=== PATIENT | male | born 1945 | race Caucasian/White ===

== ENCOUNTER → 2019-04-05 | Emergency (ER) | payer MEDICARE, BC ==
[~2019-04-05] VITALS: Ht 177.8 cm; Wt 74.8 kg
[~2019-04-05] MED LIST: HYDROCODONE/APAP 5/325MG 1 EACH TABLET ONE; HYDROCODONE/APAP 5/325MG 1 EACH TABLET PO ONE; TDAP [DIPH/PERTUSSIS/TET] 0.5 ML VIAL IM ONE
--- NOTE | 2019-04-05 14:10 | NUR ---
LACERATION TO 4TH AND 5TH DIGITS,R HAND, SUSTAINED WHILE WORKING WITH A SAW AT HOME. PATIENT IN NO DISTRESS, AT BEDSIDE. RIGHT HAND COVERED WITH A TOWEL AT THIS TIME, WAITING FOR MD FISHER.
--- NOTE | 2019-04-05 15:38 | NUR ---
LACERATION REPAIRED FOR RIGHT HAND, SPLINT DONE.
--- NOTE | 2019-04-05 15:45 | NUR ---
RIGHT HAND SPLINT INTACT. Patient discharged to home in stable condition. Written and verbal after care instructions given. Patient verbalizes understanding of instruction.
[2019-04-05 16:14] VITALS: BP 127/72
== END | disposition home or self-care (01) ==
LOC: ER 13:55
DX: S61.216A Laceration without foreign body of right little finger without damage to nail, initial encounter (principal); S60.041A Contusion of right ring finger without damage to nail, initial encounter; W31.2XXA Contact with powered woodworking and forming machines, initial encounter; Y93.89 Activity, other specified; Y92.098 Other place in other non-institutional residence as the place of occurrence of the external cause; Y99.8 Other external cause status
CPT/HCPCS: 12001; 73130; 90471; 90715; 99283; A6402; A6403